=== PATIENT | female | born 1945 | race Caucasian/White ===

== ENCOUNTER 2016-11-20 23:33 | Inpatient (IN) | payer MEDICARE, OTHER ==
[~2016-11-20] VITALS: Ht 149.9 cm; Wt 45.5 kg
[2016-11-20 23:35] VITALS: BP 178/83; PULSE 74; RESP 16; TEMP 98.7; O2SAT 96
[2016-11-20] MEDS ORDERED: LISI-519 PO (23:56)
[2016-11-21] VITALS (13 sets, daily range): BP systolic 159–285; BP diastolic 68–152; PULSE 62–76; RESP 15–37; TEMP 96.4–99.2; O2SAT 94–100
[2016-11-21] MEDS ORDERED: NITROGLYCERIN 2% OINT 1 GM PACKET ONE (00:40)
[2016-11-21] MEDS ORDERED: IODIXANOL 320 MG/ML 50 ML VIAL (for RAD SPEC) I-ARTERIAL ONE (01:00)
--- NOTE | 2016-11-21 02:06 | PD.RAD ---
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 Moderate stenosis of right ICA origin Cerebral angio shows occlusion of M1 on right. Very difficult case due to unfavorable anatomy including very tortuous vessels and diffuse atherosclerosis. Thrombectomy performed utilizing Penumbra and Solitaire devices. Unsuccessful at removing thrombus. TICI score: 0 Jr. Berto,Antwon Alford MD Nov 21, 2016 02:06
[2016-11-21] MEDS ORDERED: LABETALOL HCL 100 MG/20 ML VIAL ONE (02:29)
[2016-11-21] MEDS ORDERED: VERAPAMIL HCL 5 MG/2 ML VIAL ONE (02:40)
[2016-11-21] MEDS ORDERED: ceFAZolin 2 GM PREMIX 50 ML ONE (02:41)
[2016-11-21] MEDS ORDERED: ONDANSETRON HCL 4 MG/2 ML VIAL ONE (03:01)
[2016-11-21] MEDS ORDERED: fentaNYL CITRATE 250 MCG/5 ML AMP ONE (04:17)
[2016-11-21] MEDS: SODIUM CHLOR 0.9% 1000 ML INJ 1,000 ML IV SCH (04:22)
[2016-11-21] MEDS ORDERED: ONDANSETRON HCL 4 MG/2 ML VIAL IV PRN (04:30)
[2016-11-21] MEDS ORDERED: BISACODYL 10 MG SUPP RECTAL PRN (04:30)
[2016-11-21] MEDS ORDERED: MISCELLANEOUS NURSING INFORMATION XX SCH (04:30)
[2016-11-21] MEDS ORDERED: CHLORHEXIDINE GLUCONATE 2 % 1 PACK (2 CLOTHS) TOP PRN (04:30)
[2016-11-21] MEDS ORDERED: LACTULOSE SYRUP 20 GM/30 ML CUP PO PRN (04:30)
[2016-11-21] MEDS ORDERED: METOCLOPRAMIDE HCL 10 MG/2 ML VIAL IV PRN (04:30)
[2016-11-21] MEDS ORDERED: SODIUM CHLORIDE 0.9% FLUSH 10 ML FLUSH PRN (04:30)
[2016-11-21] MEDS ORDERED: SENNOSIDES 8.6 MG TAB PO PRN (04:30)
[2016-11-21] MEDS ORDERED: MAGNESIUM HYDROXIDE SUSP 30 ML CUP PO PRN (04:30)
[2016-11-21] MEDS ORDERED: PROCHLORPERAZINE 25 MG SUPP RECTAL PRN (04:30)
[2016-11-21] MEDS ORDERED: RESP: ALBUTEROL 2.5 MG/IPRATROPIUM 0.5 MG NEB (PRN) INH (04:30)
[2016-11-21] MEDS ORDERED: ACETAMINOPHEN 325 MG TAB PO PRN (04:30)
--- NOTE | 2016-11-21 04:34 | PD.CONS ---
HPI Service Critical Care Medicine Consult Requested By Primary Care Physician Non-Staff History of Present Illness 71-year-old female with history of hypertension presented to [facility]'s today with a symptoms of acute stroke. She was treated with TPA and transferred here for high level of care. She underwent cerebral angiogram in the interventional radiology department with finding off moderate stenosis of right ICA origin and occlusion of M1 on right. Thrombectomy attempt was performed utilizing Penumbra and Solitaire devices. Unsuccessful at removing thrombus. Review of Systems ROS Unable to obtain patient is nonverbal Past Family Social History Allergies: Coded Allergies: No Known Allergies (Unverified , 11/20/16) Past Medical History Hypertension Past Surgical History Unable to obtain Reported Medications Reported Meds & Active Scripts Active Reported Lisinopril 5 Mg Tab 5 Mg PO DAILY Family History No contributory Social History Unable to obtain Physical Exam Vital Signs Vital Signs Date Time Temp Pulse Resp B/P Pulse Ox O2 Delivery O2 Flow Rate FiO2 11/20/16 23:35 98.7 74 16 178/83 96 Physical Exam GENERAL: Well-nourished, well-developed patient. SKIN: Warm and dry. HEAD: Normocephalic. EYES: No scleral icterus. No injection or drainage. NECK: Supple, trachea midline. No JVD or lymphadenopathy. CARDIOVASCULAR: Regular rate and rhythm without murmurs, gallops, or rubs. RESPIRATORY: Breath sounds equal bilaterally. No accessory muscle use. GASTROINTESTINAL: Abdomen soft, non-tender, nondistended. MUSCULOSKELETAL: No cyanosis, or edema. BACK: Nontender without obvious deformity. No CVA tenderness. EXTREMITIES: No clubbing cyanosis or edema Assessment and Plan Assessment and Plan Acute right MCA CVA - Status post TPA administration - Status post unsuccessful thrombectomy by IR - SBP goal 160 to 180 - PT and OT eval and treat - Speech pathology evaluation Attention - Hold home dose of lisinopril - Cardene drip to achieve goal of SBP less than 180 Dyslipidemia - Atorvastatin DVT GI prophylaxis - Subcutaneous heparin and start 24 hours after TPA - Pepcid Critical Care: The total critical care time was 35 minutes. Time to perform other separately billable procedures was not included in the critical care time. Gilberto Hooks MD Nov 21, 2016 04:34
[2016-11-21 05:07] LABS: BASOPHIL % 0.3 % (0.0-2.0); EOSINOPHIL # 0.1 TH/MM3 (0-0.4); EOSINOPHIL % 0.4 % (0.0-4.0); HEMATOCRIT 39.1 % (35.0-46.0); HEMO FLAGS DIFF FINAL; LYMPHOCYTE # 0.7 TH/MM3 (1.0-4.8); MEAN CELL VOLUME 92.8 FL (80.0-100.0); MEAN CORPUSCULAR HEMOGLOBIN 31.2 PG (27.0-34.0); MEAN CORPUSCULAR HGB CONC 33.6 % (32.0-36.0); MONO % 5.6 % (0.0-8.0); NEUT % 88.7 % (16.0-70.0); PLATELET COUNT 194 TH/MM3 (150-450); RED BLOOD COUNT 4.21 MIL/MM3 (4.00-5.30); RED CELL DISTRIBUTION WIDTH 13.5 % (11.6-17.2); WHITE BLOOD COUNT 14.7 TH/MM3 (4.0-11.0)
[2016-11-21] MEDS: CHLORHEXIDINE GLUCONATE 2 % 1 PACK (2 CLOTHS) TOP SCH (06:23)
[2016-11-21] MEDS: HEPARIN SODIUM - SQ 10,000 UNITS/ML VIAL SQ SCH ×3 (06:49→22:04)
[2016-11-21 07:09] LABS: ALT (GPT) 13 U/L (10-53); ANION GAP 10 MEQ/L (5-15); AST (GOT) 15 U/L (15-37); BICARBONATE 25.1 MEQ/L (21.0-32.0); BLOOD UREA NITROGEN 11 MG/DL (7-18); CALCIUM-PROTEIN CORRECTED 7.5 MG/DL (8.5-10.1); CHLORIDE 100 MEQ/L (98-107); GLOMERULAR FILTRATION RATE 56 ML/MIN (>89); MAGNESIUM 1.8 MG/DL (1.5-2.5); POTASSIUM 3.5 MEQ/L (3.5-5.1); SODIUM (NA) 135 MEQ/L (136-145); TOTAL BILIRUBIN ADULT 0.4 MG/DL (0.2-1.0)
[2016-11-21 07:10] LABS: ALKALINE PHOSPHATASE 49 U/L (45-117)
[2016-11-21] MEDS: DOCUSATE SODIUM 50 MG/SENNA 8.6 MG TAB PO SCH ×2 (09:00→21:00)
[2016-11-21] MEDS: SODIUM CHLORIDE 0.9% FLUSH 10 ML FLUSH SCH ×2 (09:00→22:02)
[2016-11-21] MEDS: FAMOTIDINE 20 MG/2 ML VIAL IV PUSH SCH ×2 (10:09→22:02)
--- NOTE | 2016-11-21 11:40 | RADRPT ---
EXAM DATE/TIME: 11/20/2016 00:42 [facility] COMPARISON: No previous studies available for comparison. INDICATIONS : Patient presents as emergent stroke in need of angiogram. Stroke score 17. Patient last seen normal a pproximately 6 hours ago. Patient left-sided hemiparetic. MEDICAL HISTORY : HTN SURGICAL HISTORY : Unknown ENCOUNTER: Initial ACUITY: 1 day PAIN SCORE: 0/10 FLUORO TIME: 32 minutes IMAGE SERIES: 18 ACCESS SITE: Bilateral Femoral artery CONTRAST: 120 cc Visipaque (iodixanol) DEVICE(S): 1.) Right middle cerebral artery LONNY 68 Kit Reperfusion catheter 2.) Right midddle cerebral artery Solitaire 6X30MM 3.) Left common femoral artery 8F Angio-Seal TIMELINE: Interventional team called: 1040 pm Interventional team arrived: 1110 pm Interventional team ready: 1140 pm Patient arrival: 1149 pm Groin puncture: 1221 am Recanalization: 0 Anesthesia and pain control was provided by the Anesthesia department. PROCEDURE : 1. Ultrasound-guided puncture of the access site(x2). 2. Angiography of the access site prior to closure device. 3. anesthesiology present for anesthesia. 4. Percutaneous closure of the access site. 5. Angiography of the right common carotid artery 6. Angiography of the right internal carotid artery 7. mechanical thrombectomy of the right M1 segment of the MCA A CD accompanied the patient but a chest x-ray was the only imaging study on this disc. I have no [facility] angiographic images. The risks, benefits and alternatives to the procedure were explained to the patient and verbal and co nsent was obtained. No family was available for consent. The right groin was prepped in sterile fashi on. Full sterile technique was used, including cap, mask, sterile gloves and gown and a large steril e sheet. Hand hygiene and 2% chlorhexidine and/or betadine/alcohol prep was utilized per protocol fo r cutaneous antisepsis. The skin and subcutaneous tissues were infiltrated with local anesthetic alejandra ution. With ultrasound and fluoroscopic guidance the right common femoral artery was punctured and a vascula r sheath was placed. I was unable to gain access to the aorta via this approach. 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 The micropuncture sheath was rem efrain and pressure held with hemostasis obtained. With ultrasound and fluoroscopic guidance the left c ommon femoral artery was punctured and a vascular sheath placed. Angiography of the common femoral ar vishnu was performed for evaluation prior to percutaneous closure device placement. This shows a 60% st enosis of the left common femoral artery. After placement of the left groin sheath the brachiocephalic artery was selected. The origin of the b rachiocephalic artery is fairly inferior within the ascending aorta generating a tight acute angle. T he right interim carotid artery was selected and angiography performed of the right ICA. This shows c omplete occlusion of the M1 segment. The A1 segment and anterior cerebral circulation are patent. The re is poor collateralization to the distal middle cerebral territory. A sheath was positioned in the common carotid artery. Angiography of the carotid bifurcation shows calcified plaque generating a 40- 50% stenosis. An 068 Penumbra and marksman catheter were passed through the sheath and utilized to ga in access to the intracranial ICA. The Penumbra catheter would not course through the intercavernous ICA due to calcified atherosclerotic disease. I was able to get the microcatheter through the thrombu s and a #6 solitary device deployed within the middle cerebral artery into the proximal M2 branch. Th is was left for 5 minutes. Attempts were then made to get the Penumbra catheter to the start of the t hrombus but once again the disease within the ICA prevented this. The tip of the catheter was able to reach the intercavernous ICA. Suction was applied and the solitary device retracted. Followup angiog maureen shows no change. The length of time it took to get the solitary device in place was extensive and therefore repeating this would be far outside the window. The procedure was terminated this point. Hemostasis was obtained with the prescribed medicated closure device. Conscious sedation was perform ed with the prescribed dosages and duration as above in the presence of an independent trained radiol ogy nurse to assist in the monitoring of the patient. EKG and oximetry remained stable throughout th e procedure. CONCLUSION: 1. Occluded right common femoral artery. 2. Significant stenosis involving the left common femoral artery. 3. 50-60% stenosis of the right ICA origin. 4. Complete occlusion of the M1 segment on the right with failed attempts at mechanical thrombectomy as detailed in the above discussion. Antwon Thomson Jr., MD on November 21, 2016 at 10:50 Board Certified Radiologist. This report was verified electronically.
--- NOTE | 2016-11-21 13:27 | MB ---
cc: IBRAHIMA CALDERON M.D. DATE OF CONSULTATION: 11/21/2016 HISTORY OF PRESENT ILLNESS She is a 71-year-old woman seen in neurological consultation. Last evening around 7-8 p.m. she was treated at [facility] for an acute stroke. She had left hemiparesis and some apparent gaze deviation to the right. She was felt to be a TPA candidate. She was given TPA and then a CT angio apparently showed some right medial cerebral artery stenosis/thrombosis. The patient was subsequently transferred to [facility]. An attempt to do thrombectomy was carried out, but not successful. The patient has been fairly stable overall. I spoke to the nursing staff. I also briefly spoke to Dr. Mondragon about this patient early today as Dr. Mondragon, my associate, was involved in the transfer of this patient to the hospital here for interventional radiology. I do not have much more history on her. NEUROLOGIC EXAM On exam she is frail but she is easily awakened, she has gaze preference to the right and she neglects the left side quite severely. She counts fingers on the right but not on the left. She moves the right-sided limbs well on commands with strong bakery products checker and she moves the right leg well on commands. The left-sided limbs have tone but she is neglecting and not really showing any spontaneous, voluntary motor function. There appeared with stimulation on the left side, she will withdraw fairly promptly and the left plantar response is extensor. She has reflexes bilaterally but diminished at the ankles. The pupils were about same size, reactive and I am unable to see the disks. LABORATORY DATA A CBC today shows a white count of 14.7, hemoglobin 13.1, platelets 194. Sodium 135. Glucose 137, calcium low at 7.2, BUN and creatinine normal. ASSESSMENT Status post acute right middle cerebral artery distribution event. TPA given and an attempt to do a thrombectomy was made but not successful. She is already scheduled for follow up CT brain later this evening. Her blood pressure has been in reasonable range. No atrial fibrillation documented. She has SCDs. We will request lipid profile, echocardiogram and depending upon results of CT scan, we will subsequently obtain MRI brain. She is n.p.o. at this point. I will continue the neurological care. Thank you for asking us to assist in her care. MD KIMBERLI Hdez/TLMary /1:04 PM /1:15 PM
[2016-11-21 13:49] LABS: HDL CHOLESTEROL 71.9 MG/DL (40.0-60.0)
[2016-11-21] MEDS ORDERED: TERBUTALINE INJ 1 MG/ML AMP SQ PRN (17:00)
[2016-11-21] MEDS ORDERED: ACETAMINOPHEN 1000 MG/100 ML VIAL IV PRN (17:00)
[2016-11-21] MEDS ORDERED: PHENYLEPHRINE INJ 40 MG in SODIUM CHLORID 0.9% 500 ML INJ 500 ML IV SCH (18:00)
--- NOTE | 2016-11-21 20:57 | RADRPT ---
EXAM DATE/TIME: 11/21/2016 20:42 [facility] COMPARISON: THROMBECTOMY, INTRACRANIAL, November 20, 2016, 0:42. INDICATIONS : Post TPA. RADIATION DOSE: 35.25 CTDIvol (mGy) MEDICAL HISTORY : Hypertension. SURGICAL HISTORY : Unspecified surgery. ENCOUNTER: Initial ACUITY: 1 day PAIN SCALE: 0/10 LOCATION: cranial TECHNIQUE: Multiple contiguous axial images were obtained of the head. Using automated exposure control and adj ustment of the mA and/or kV according to patient size, radiation dose was kept as low as reasonably a chievable to obtain optimal diagnostic quality images. FINDINGS: Faint low attenuation in a cytotoxic edema pattern seen in the right middle cerebral artery distribut ion. No significant mass effect/midline shift at this time. No hemorrhage or hematoma. No mass lesion . No evidence of an ischemic event on the left. Intact skull. CONCLUSION: Evidence of a subacute infarct of the right middle cerebral artery distribution. No bleed. No signifi cant mass effect at this time. Pj Maza MD on November 21, 2016 at 20:53 Board Certified Radiologist. This report was verified electronically.
[2016-11-22] VITALS (14 sets, daily range): BP systolic 159–202; BP diastolic 70–84; PULSE 54–80; RESP 20–39; TEMP 97.9–99.2; O2SAT 98–100
[2016-11-22 04:05] LABS: AUTOMATED NEUTROPHIL # 7.8 TH/MM3 (1.8-7.7); BASOPHIL % 0.3 % (0.0-2.0); EOSINOPHIL % 0.3 % (0.0-4.0); HEMATOCRIT 36.2 % (35.0-46.0); HEMO FLAGS DIFF FINAL; LYMPH % 12.3 % (9.0-44.0); LYMPHOCYTE # 1.2 TH/MM3 (1.0-4.8); MEAN CELL VOLUME 93.6 FL (80.0-100.0); MEAN CORPUSCULAR HEMOGLOBIN 31.2 PG (27.0-34.0); MEAN CORPUSCULAR HGB CONC 33.4 % (32.0-36.0); MONO % 8.8 % (0.0-8.0); NEUT % 78.3 % (16.0-70.0); PLATELET COUNT 156 TH/MM3 (150-450); RED BLOOD COUNT 3.87 MIL/MM3 (4.00-5.30); RED CELL DISTRIBUTION WIDTH 13.5 % (11.6-17.2); WHITE BLOOD COUNT 9.9 TH/MM3 (4.0-11.0)
[2016-11-22 04:16] LABS: APTT (PATIENT) 30.6 SEC (24.3-30.1); INTERNATIONAL NORMALIZED RATIO 0.9 RATIO; PROTHROMBIN TIME - PATIENT 10.3 SEC (9.8-11.6)
[2016-11-22 04:37] LABS: BICARBONATE 25.6 MEQ/L (21.0-32.0); MAGNESIUM 1.9 MG/DL (1.5-2.5); POTASSIUM 3.4 MEQ/L (3.5-5.1); TOTAL BILIRUBIN ADULT 0.5 MG/DL (0.2-1.0)
[2016-11-22 05:19] LABS: CALCIUM-PROTEIN CORRECTED 7.4 MG/DL (8.5-10.1)
[2016-11-22] MEDS: HEPARIN SODIUM - SQ 10,000 UNITS/ML VIAL SQ SCH ×3 (05:41→21:18)
[2016-11-22] MEDS: MORPHINE SULFATE 4 MG/ML INJ IV PRN ×2 (05:42)
[2016-11-22] MEDS ORDERED: CALCIUM GLUCONATE INJ 2 GM in SODIUM CHLORIDE 0.9% INJ 100 ML IV ONE (06:15)
[2016-11-22] MEDS: SODIUM CHLOR 0.9% 1000 ML INJ 1,000 ML IV SCH ×3 (06:52→21:17)
--- NOTE | 2016-11-22 08:45 | HHI.PR ---
Review/Management Daily Summary 11/22 less restless this am on my exam no headache left hemiparesis severe and unchanged start asa suppository echo pending nutrition via ng tube? PT for stroke rehab Subjective Subjective Comments No new neuro events reported No headache Active Medications Current Medications Medications (Trade) Dose Ordered Sig/Chana Route Start Time Stop Time Status Last Admin (NS 1000 ml Inj) 1,000 ml @ 84 mls/hr [id number] IV 11/21/16 04:22 11/22/16 07:05 (NS Flush) 2 ml UNSCH PRN .XX 11/21/16 04:30 (NS Flush) 2 ml BID .XX 11/21/16 09:00 11/21/16 22:02 (Tylenol) 650 mg Q6H PRN PO 11/21/16 04:30 (Morphine Inj) 2 mg Q2H PRN IV 11/21/16 04:30 11/22/16 05:42 (Pepcid Inj) 20 mg Q12HR IV PUSH 11/21/16 09:00 11/21/16 22:02 (Zofran Inj) 4 mg Q6H PRN IV 11/21/16 04:30 (Reglan Inj) 10 mg Q6H PRN IV 11/21/16 04:30 (Compazine Supp) 25 mg Q12H PRN RECTAL 11/21/16 04:30 (Heparin Inj) 5,000 units Q8H SQ 11/21/16 06:00 11/22/16 05:41 Miscellaneous Information 1 Q361D XX 11/21/16 04:30 11/21/16 04:30 (Chlorhexidine 2% Cloth) 3 pack Taper DAILY@04 TOP 11/22/16 04:00 11/18/17 03:59 11/21/16 06:23 (Chlorhexidine 2% Cloth) 3 pack UNSCH PRN TOP 11/21/16 04:30 (Venita-Colace) 1 tab BID PO 11/21/16 09:00 (Milk Of Magnesia Liq) 30 ml Q12H PRN PO 11/21/16 04:30 (Senokot) 17.2 mg Q12H PRN PO 11/21/16 04:30 (Dulcolax Supp) 10 mg DAILY PRN RECTAL 11/21/16 04:30 (Lactulose Liq) 30 ml DAILY PRN PO 11/21/16 04:30 Acetaminophen 1000 mg 1,000 mg Q6H PRN IV 11/21/16 17:00 (Neosynephrine Inj/NS 500 ml Inj) 504 ml @ 0 mls/hr TITRATE IV 11/21/16 18:00 (Brethine Inj) 1 mg UNSCH PRN SQ 11/21/16 17:00 Allergies Allergies Coded Allergies No Known Allergies (Unverified11/20/16) Exam I&O / VS 11/21/16 11/21/16 11/22/16 15:00 23:00 07:00 Intake Total 702 ml 329 ml 556 ml Output Total 375 ml Balance 702 ml 329 ml 181 ml Intake IV Total 702 ml 329 ml 556 ml Output Urine Total 375 ml # Voids 1 2 # Bowel Movements 0 Vital Signs Date Time Temp Pulse Resp B/P Pulse Ox O2 Delivery O2 Flow Rate FiO2 11/22/16 08:01 98 Nasal Cannula 2.00 11/22/16 06:00 56 11/22/16 04:00 64 11/22/16 04:00 98.6 64 26 202/80 99 11/22/16 02:00 54 11/22/16 00:00 99.2 69 24 179/70 98 11/22/16 00:00 66 11/21/16 22:00 62 11/21/16 20:00 66 11/21/16 20:00 99.2 70 15 171/74 99 11/21/16 19:27 99 Nasal Cannula 3.00 11/21/16 19:00 99 Nasal Cannula 3.00 11/21/16 18:00 66 11/21/16 16:00 66 11/21/16 16:00 98.7 66 32 163/70 100 11/21/16 14:00 66 11/21/16 12:00 99.1 68 26 179/73 97 11/21/16 12:00 64 11/21/16 10:00 66 Objective Radiology Results Last [address] 11/21/161999 Signed Impressions: Service Date/Time: Monday, November 21, 2016 20:42 - CONCLUSION: Evidence of a subacute infarct of the right middle cerebral artery distribution. No bleed. No significant mass effect at this time. Pj Maza MD Vital Signs Date Time Temp Pulse Resp B/P Pulse Ox O2 Delivery O2 Flow Rate FiO2 11/22/16 08:01 98 Nasal Cannula 2.00 11/22/16 06:00 56 11/22/16 04:00 64 11/22/16 04:00 98.6 64 26 202/80 99 11/22/16 02:00 54 11/22/16 00:00 99.2 69 24 179/70 98 11/22/16 00:00 66 11/21/16 22:00 62 11/21/16 20:00 66 11/21/16 20:00 99.2 70 15 171/74 99 11/21/16 19:27 99 Nasal Cannula 3.00 11/21/16 19:00 99 Nasal Cannula 3.00 11/21/16 18:00 66 11/21/16 16:00 66 11/21/16 16:00 98.7 66 32 163/70 100 11/21/16 14:00 66 11/21/16 12:00 99.1 68 26 179/73 97 11/21/16 12:00 64 11/21/16 10:00 66 Micro and Labs Laboratory Tests Test 11/21/16 11/22/16 11:13 03:30 Troponin I LESS THAN 0.02 Triglycerides Level 98 Cholesterol Level 146 LDL Cholesterol 55 HDL Cholesterol 71.9 Cholesterol/HDL Ratio 2.03 White Blood Count 9.9 Red Blood Count 3.87 Hemoglobin 12.1 Hematocrit 36.2 Mean Corpuscular Volume 93.6 Mean Corpuscular Hemoglobin 31.2 Mean Corpuscular Hemoglobin 33.4 Concent Red Cell Distribution Width 13.5 Platelet Count 156 Mean Platelet Volume 8.3 Neutrophils (%) (Auto) 78.3 Lymphocytes (%) (Auto) 12.3 Monocytes (%) (Auto) 8.8 Eosinophils (%) (Auto) 0.3 Basophils (%) (Auto) 0.3 Neutrophils # (Auto) 7.8 Lymphocytes # (Auto) 1.2 Monocytes # (Auto) 0.9 Eosinophils # (Auto) 0.0 Basophils # (Auto) 0.0 CBC Comment DIFF FINAL Differential Comment Prothrombin Time 10.3 Prothromb Time International 0.9 Ratio Activated Partial 30.6 Thromboplast Time Sodium Level 137 Potassium Level 3.4 Chloride Level 106 Carbon Dioxide Level 25.6 Anion Gap 5 Blood Urea Nitrogen 10 Creatinine 0.90 Estimat Glomerular Filtration 61 Rate Random Glucose 83 Calcium Level 6.8 Protein Corrected Calcium 7.4 Phosphorus Level 2.6 Magnesium Level 1.9 Total Bilirubin 0.5 Aspartate Amino Transf 15 (AST/SGOT) Alanine Aminotransferase 13 (ALT/SGPT) Alkaline Phosphatase 46 Total Protein 6.0 Albumin 2.9 Cesar Oviedo MD Nov 22, 2016 08:45
[2016-11-22] MEDS: DOCUSATE SODIUM 50 MG/SENNA 8.6 MG TAB PO SCH ×2 (09:00→20:57)
[2016-11-22] MEDS: SODIUM CHLORIDE 0.9% FLUSH 10 ML FLUSH SCH ×2 (09:00→20:56)
[2016-11-22] MEDS: FAMOTIDINE 20 MG/2 ML VIAL IV PUSH SCH ×2 (09:50→20:57)
--- NOTE | 2016-11-22 12:54 | HHI.CCPN ---
Subjective Remarks/Hospital Course Hospital Course: 71-year-old female with history of hypertension presented to [facility]'s today with a symptoms of acute stroke. She was treated with TPA and transferred here for high level of care. She underwent cerebral angiogram in the interventional radiology department with finding off moderate stenosis of right ICA origin and occlusion of M1 on right. Thrombectomy attempt was performed utilizing Penumbra and Solitaire devices. Unsuccessful at removing thrombus. Subjective: 11/22: neuro exam slightly improved. more awake. passed swallow study. still on small amount of nicardipine. Objective Vital Signs Date Time Temp Pulse Resp B/P Pulse Ox O2 Delivery O2 Flow Rate FiO2 11/22/16 08:01 98 Nasal Cannula 2.00 11/22/16 06:00 56 11/22/16 04:00 98.6 26 202/80 Intake and Output 11/21/16 11/21/16 11/22/16 08:00 16:00 00:00 Intake Total 176 ml 702 ml 329 ml Output Total 100 ml Balance 76 ml 702 ml 329 ml Result Diagram: 11/22/16 0330 11/22/16 0330 Objective Remarks GENERAL: Well-nourished, well-developed patient. SKIN: Warm and dry. HEAD: Normocephalic. EYES: No scleral icterus. No injection or drainage. NECK: trachea midline. No JVD CARDIOVASCULAR: normal rate, regular rhythm. sinus by tele. RESPIRATORY: Unlabored. equal chest rise. No accessory muscle use. GASTROINTESTINAL: Abdomen soft, non-tender, nondistended. MUSCULOSKELETAL: No cyanosis, or edema. EXTREMITIES: No clubbing cyanosis or edema Neuro: awake, follows commands on right. cyrus 0/5 on left. A/P Assessment and Plan Assessment: 71yF s/p right MCA CVA. clinically improving. weaning off Cardene. goal SBP < 180. will gently restart home antihypertensives. likely stable for transfer to floor late today. Acute right MCA CVA - Status post TPA administration - Status post unsuccessful thrombectomy by IR - SBP goal < 180 - PT and OT eval and treat - Speech pathology evaluation: cleared for mechanical soft. - ASA Hypertensive Urgency - restart home lisinopril 5mg po daily - Cardene drip to achieve goal of SBP less than 180, wean off using prn labetalol, hydralazine. Dyslipidemia - Atorvastatin DVT GI prophylaxis - Subcutaneous heparin - Pepcid Dispo: likely stable for transfer to floor with hospitalist service following. Musa Mahan MD Nov 22, 2016 12:54
[2016-11-22] MEDS: LISINOPRIL 5 MG TAB PO SCH (13:45)
--- NOTE | 2016-11-22 17:57 | ECHRPT ---
Indication: STROKE CONCLUSIONS The transthoracic study is normal by two-dimensional, color flow imaging and Doppler interrogation. BP: 202 / 80 HR: 64 Rhythm: Sinus MEASUREMENTS (Male / Female) Normal Values Technical Quality:Fair 2D ECHO LV Diastolic Diameter PLAX 4.4 cm 4.2 - 5.9 / 3.9 - 5.3 cm LV Systolic Diameter PLAX 3.0 cm IVS Diastolic Thickness 0.8 cm 0.6 - 1.0 / 0.6 - 0.9 cm LVPW Diastolic Thickness 0.8 cm 0.6 - 1.0 / 0.6 - 0.9 cm LV Relative Wall Thickness 0.4 RV Internal Dim ED PLAX 1.9 cm LVOT Diameter 2.0 cm LA Systolic Diameter LX 3.2 cm 3.0 - 4.0 / 2.7 - 3.8 cm LV Ejection Fraction MOD 4C 61.7 % LV Cardiac Index MOD 4C 1800.9 cm/minm LV Ejection Fraction 4C AL 64.7 % LV Cardiac Index 4C AL 1966.8 cm/minm M-MODE Aortic Root Diameter MM 2.9 cm AV Cusp Separation MM 1.7 cm DOPPLER AV Peak Velocity 156.0 cm/s AV Peak Gradient 9.7 mmHg LVOT Peak Velocity 97.2 cm/s LVOT Peak Gradient 3.8 mmHg AV Area Cont Eq pk 2.0 cm MV Area PHT 3.9 cm Mitral E Point Velocity 78.5 cm/s Mitral A Point Velocity 73.1 cm/s Mitral E to A Ratio 1.1 LV E' Lateral Velocity 6.3 cm/s Mitral E to LV E' Lateral Ratio 12.4 LV E' Septal Velocity 5.5 cm/s Mitral E to LV E' Septal Ratio 14.4 TV Peak Velocity 213.0 cm/s PV Peak Velocity 83.6 cm/s PV Peak Gradient 2.8 mmHg FINDINGS Left Ventricle No regional wall motion abnormalities are present. Normal left ventricular size and wall thickness. The left ventricular systolic function is normal with an estimated ejection fraction in the range of 60-65%. Left ventricular diastolic function parameters are normal. Right Ventricle Normal right ventricular size and systolic function. Left Atrium The left atrial size is normal. Right Atrium The right atrial size is normal. Atrial Septum Normal atrial septal thickness without atrial level shunting by limited color doppler interrogation. Aorta The aortic root and proximal ascending aorta are normal in size on limited imaging. Mitral Valve Structurally normal mitral valve. No mitral valve stenosis or regurgitation. Aortic Valve Trileaflet aortic valve. No aortic valve stenosis or regurgitation. Aortic valve sclerosis is prese nt. Tricuspid Valve Structurally normal tricuspid valve. There is trace tricuspid valve regurgitation. Pulmonary Valve The pulmonary valve is not well visualized. Vessels The inferior vena cava is normal in size. Pericardium No pericardial effusion. Joo Schmitz MD, FACC, FSCAI Edited by: [employer]ist[employer] (Electronically Signed) Final Date:22 November 2016 15:14 Amended: 22 November 2016 17:48
[2016-11-22] MEDS: NICOTINE 21 MG/24 HR PATCH T-DERMAL SCH (20:56)
[2016-11-22] MEDS: REMOVE OLD PATCH T-DERMAL SCH (21:00)
[2016-11-22] MEDS: LABETALOL HCL 100 MG/20 ML VIAL IV PUSH PRN (23:38)
[2016-11-23] VITALS (14 sets, daily range): BP systolic 134–187; BP diastolic 71–90; PULSE 61–93; RESP 18–26; TEMP 96.8–99; O2SAT 94–100
[2016-11-23] MEDS: LABETALOL HCL 100 MG/20 ML VIAL IV PUSH PRN (01:14)
[2016-11-23] MEDS: CHLORHEXIDINE GLUCONATE 2 % 1 PACK (2 CLOTHS) TOP SCH (02:53)
[2016-11-23] MEDS: hydrALAZINE HCL 20 MG/ML VIAL IV PUSH PRN ×2 (02:54→13:41)
[2016-11-23] MEDS: SODIUM CHLOR 0.9% 1000 ML INJ 1,000 ML IV SCH ×3 (04:02→21:19)
[2016-11-23] MEDS: HEPARIN SODIUM - SQ 10,000 UNITS/ML VIAL SQ SCH ×3 (06:19→21:15)
[2016-11-23] MEDS: SODIUM CHLORIDE 0.9% FLUSH 10 ML FLUSH SCH ×2 (09:00→21:17)
[2016-11-23] MEDS ORDERED: REMOVE OLD PATCH T-DERMAL SCH (09:00)
[2016-11-23] MEDS: FAMOTIDINE 20 MG/2 ML VIAL IV PUSH SCH ×2 (09:12→21:14)
[2016-11-23] MEDS: DOCUSATE SODIUM 50 MG/SENNA 8.6 MG TAB PO SCH ×2 (09:12→21:14)
[2016-11-23] MEDS: LISINOPRIL 5 MG TAB PO SCH (09:12)
[2016-11-23] MEDS: NICOTINE 21 MG/24 HR PATCH T-DERMAL SCH (09:13)
[2016-11-23] MEDS ORDERED: CALCIUM GLUCONATE INJ 1 GM in SODIUM CHLORIDE 0.9% INJ 100 ML IV ONE (12:45)
--- NOTE | 2016-11-23 13:38 | HHI.PR ---
Subjective Remarks Follow-up for CVA Patient is able to follow commands but there is difficulty understanding patient because she wears dentures. Patient stated that she wanted to go home to see her daughter. Patient has if I speak to her daughter Kristen. Patient sisters at the bedside. Patient has no other complaints. She continues to have right-sided weakness. Denies any headache, visual changes, nausea or emesis. Objective Vitals Vital Signs Date Time Temp Pulse Resp B/P Pulse Ox O2 Delivery O2 Flow Rate FiO2 11/23/16 12:00 99.0 75 23 175/82 96 11/23/16 10:00 62 11/23/16 09:27 97 Nasal Cannula 2.00 11/23/16 08:00 72 11/23/16 08:00 98.6 76 20 167/81 96 Arterial Line 11/23/16 07:00 95 Nasal Cannula 3.00 11/23/16 06:00 76 11/23/16 04:00 74 11/23/16 04:00 98.4 74 26 134/71 97 11/23/16 02:00 66 11/23/16 00:00 99.0 61 26 160/71 97 11/23/16 00:00 61 11/22/16 22:00 72 11/22/16 20:44 100 Nasal Cannula 2.00 11/22/16 20:00 99.1 80 20 198/74 100 11/22/16 20:00 80 11/22/16 19:00 98 Nasal Cannula 3.00 11/22/16 18:00 60 11/22/16 16:00 68 11/22/16 16:00 99.1 68 39 173/79 11/22/16 14:00 62 I/O 11/22/16 11/22/16 11/22/16 11/23/16 11/23/16 11/23/16 07:00 15:00 23:00 07:00 15:00 23:00 Intake Total 556 ml 982 ml 547 ml 604 ml Output Total 375 ml 1550 ml 700 ml 325 ml Balance 181 ml -568 ml -153 ml 279 ml Intake IV Total 556 ml 982 ml 547 ml 604 ml Output Urine Total 375 ml 1550 ml 700 ml 325 ml # Bowel Movements 0 0 0 0 Result Diagram: 11/22/16 03311/22/16 0330 Objective Remarks GENERAL: in NAD CARDIOVASCULAR: Regular rate and rhythm without gallops or rubs. 2 out of 6 soft flow murmur in the pulmonic area. RESPIRATORY: Breath sounds equal bilaterally. No accessory muscle use. GASTROINTESTINAL: Abdomen soft, non-tender, nondistended. NEURO: Patient does follow commands but is difficult to understand patient due to not having her dentures. Patient did ask to go home and stated that she does not need to go to rehabilitation center that she has her cane and she is more the capable of taking care of herself at home. Right-sided strength 5 out of 5. She has no strength on the right side but when I asked her to lift her right leg I do see a little flexion of the hip. Medications and IVs Current Medications Nitroglycerin (Nitroglycerin 2% Oint) 1 inch STK-MED ONCE .ROUTE ; Start at 00:40; Stop 11/21/16 at 00:41; Status DC Labetalol HCl (Trandate Inj) 100 mg STK-MED ONCE .ROUTE Last administered on 02:30; Start 11/21/16 at 02:29; Stop 11/21/16 at 02:30; Status DC Verapamil HCl 5 mg 5 mg STK-MED ONCE .ROUTE ; Start 11/21/16 at 02:40; Stop at 02:41; Status DC Cefazolin Sodium/ Dextrose (Ancef 2 Gm Premix) 50 ml @ As Directed STK-MED ONCE .ROUTE Last administered on 11/21/16 02:10; Start 11/21/16 at 02:41; Stop at 02:42; Status DC Nicardipine HCl (Cardene Inj) 25 mg STK-MED ONCE .ROUTE Last administered on 02:47; Start 11/21/16 at 02:47; Stop 11/21/16 at 02:48; Status DC Ondansetron HCl (Zofran Inj) 4 mg STK-MED ONCE .ROUTE Last administered on 03:01; Start 11/21/16 at 03:01; Stop 11/21/16 at 03:02; Status DC Fentanyl Citrate 250 mcg 250 mcg STK-MED ONCE .ROUTE ; Start 11/21/16 at 04:17; Stop 11/21/16 at 04:18; Status DC Sodium Chloride (NS 1000 ml Inj) 1,000 ml @ 84 mls/hr [id number] IV Last administered on 11/22/16 21:17; Start 11/21/16 at 04:22 Sodium Chloride (NS Flush) 2 ml UNSCH PRN .XX FLUSH AFTER USING IV ACCESS; Start 11/21/16 at 04:30 Sodium Chloride (NS Flush) 2 ml BID .XX Last administered on 11/23/16 09:00; Start 11/21/16 at 09:00 Acetaminophen (Tylenol) 650 mg Q6H PRN PO PAIN 1-5 AND/OR FEVER >101F; Start at 04:30 Morphine Sulfate (Morphine Inj) 2 mg Q2H PRN IV PAIN SCALE 6 TO 10 Last administered on 11/22/16 05:42; Start 11/21/16 at 04:30 Famotidine (Pepcid Inj) 20 mg Q12HR IV PUSH Last administered on 11/23/16 09:12 ; Start 11/21/16 at 09:00 Ondansetron HCl (Zofran Inj) 4 mg Q6H PRN IV NAUSEA OR VOMITING; Start 11/21/16 at 04:30 Metoclopramide HCl (Reglan Inj) 10 mg Q6H PRN IV NAUSEA OR VOMITING; Start 11/21 at 04:30 Prochlorperazine (Compazine Supp) 25 mg Q12H PRN RECTAL NAUSEA OR VOMITING; Start 11/21/16 at 04:30 Albuterol/ Ipratropium (Duoneb Neb) 1 ampule Q2HR NEB PRN INH WHEEZING; Start 11/21/16 at 04:30 Heparin Sodium (Porcine) (Heparin Inj) 5,000 units Q8H SQ Last administered on 11/23/16 06:19; Start 11/21/16 at 06:00 Miscellaneous Information 1 Q361D XX Last administered on 11/21/16 04:30; Start 11/21/16 at 04:30 Chlorhexidine Gluconate (Chlorhexidine 2% Cloth) 3 pack Taper DAILY@04 TOP Last administered on 11/23/16 02:53; Start 11/22/16 at 04:00; Stop 11/18/17 at 03: 59 Chlorhexidine Gluconate (Chlorhexidine 2% Cloth) 3 pack UNSCH PRN TOP HYGIENIC CARE; Start 11/21/16 at 04:30 Senna/Docusate Sodium (Venita-Colace) 1 tab BID PO Last administered on 11/23/16 09:12; Start 11/21/16 at 09:00 Magnesium Hydroxide (Milk Of Magnesia Liq) 30 ml Q12H PRN PO MILD - MODERATE CONSTIPATION; Start 11/21/16 at 04:30 Sennosides (Senokot) 17.2 mg Q12H PRN PO MODERATE - SEVERE CONSTIPATION; Start 11/21/16 at 04:30 Bisacodyl (Dulcolax Supp) 10 mg DAILY PRN RECTAL SEVERE CONSITIPATION; Start at 04:30 Lactulose (Lactulose Liq) 30 ml DAILY PRN PO SEVERE CONSITIPATION; Start at 04:30 Iodixanol (VISIPAQUE 320 INJ (Rad Spec)) 120 ml STK-MED ONCE I-ARTERIAL Last administered on 11/21/16 01:00; Start 11/21/16 at 01:00; Stop 11/21/16 at 10:04; Status DC Acetaminophen 1000 mg 1,000 mg Q6H PRN IV pain 1-10 or fever > 100.4.; Start at 17:00 Phenylephrine HCl/ Sodium Chloride (Neosynephrine Inj/NS 500 ml Inj) 504 ml @ 0 mls/hr TITRATE IV ; Start 11/21/16 at 18:00; Stop 11/22/16 at 12:54; Status DC Terbutaline Sulfate 1 mg 1 mg UNSCH PRN SQ For Extravasation; Start 11/21/16 at 17:00 Calcium Gluconate/ Sodium Chloride (Calcium Gluconate Inj/NS Inj) 120 ml @ 120 mls/hr ONCE ONCE IV Last administered on 11/22/16 06:52; Start 11/22/16 at 06: 15; Stop 11/22/16 at 07:14; Status DC Lisinopril (Prinivil) 5 mg DAILY PO Last administered on 11/23/16 09:12; Start 11/22/16 at 12:41; Stop 11/23/16 at 12:36; Status DC Labetalol HCl (Trandate Inj) 20 mg Q15M PRN IV PUSH sbp > 180 Last administered on 11/23/16 01:14; Start 11/22/16 at 12:45 Hydralazine HCl (Apresoline Inj) 10 mg Q30M PRN IV PUSH sbp > 180 Last administered on 11/23/16 02:54; Start 11/22/16 at 12:45 Nicotine (Habitrol 21 Mg Patch.24 Hr) 1 patch DAILY T-DERMAL Last administered on 11/23/16 09:13; Start 11/22/16 at 20:15 Miscellaneous Information 1 DAILY T-DERMAL ; Start 11/23/16 at 09:00; Status UNV Miscellaneous Information 1 HS T-DERMAL ; Start 11/22/16 at 21:00 Lisinopril (Prinivil) 10 mg DAILY PO ; Start 11/24/16 at 09:00 Hydrochlorothiazide 25 mg 25 mg DAILY PO ; Start 11/23/16 at 12:45 Calcium Gluconate/ Sodium Chloride (Calcium Gluconate Inj/NS Inj) 110 ml @ 110 mls/hr ONCE ONCE IV ; Start 11/23/16 at 12:45; Stop 11/23/16 at 13:44 A/P Assessment and Plan 71yF s/p right MCA CVA. Acute right MCA CVA - Status post TPA administration - Status post unsuccessful thrombectomy by IR - SBP goal < 180 - PT and OT eval and treat - Speech pathology evaluation: cleared for mechanical soft. - ASA. LDL is 55. Continue to monitor on telemetry. Hypertensive Urgency - Increase lisinopril to 10 mg by mouth daily. Add Hydrocort Dyazide. Dyslipidemia - Atorvastatin DVT GI prophylaxis - Subcutaneous heparin - Pepcid Discharge Planning Once patient is medically stable she will need to be discharged to rehabilitation facility. There is no number for Kristen, patient's daughter, in the chart. I spoke with patient's sister who stated that her daughter, Walt has her number. I called see him but she did not pear picker the phone. Will try calling Walt again in order to reach Kristen since patient wants me to speak to her daughter. Per patient's nurse they have been communicating with Kristen but her numbers is not in the chart. Jaci Palmer MD Nov 23, 2016 13:38
[2016-11-23] MEDS: HYDROCHLOROTHIAZIDE 25 MG TAB PO SCH (15:35)
[2016-11-23] MEDS: REMOVE OLD PATCH T-DERMAL SCH (21:00)
[2016-11-23] MEDS: MORPHINE SULFATE 4 MG/ML INJ IV PRN (23:38)
[2016-11-24] MEDS: CHLORHEXIDINE GLUCONATE 2 % 1 PACK (2 CLOTHS) TOP SCH (04:00)
[2016-11-24 04:04] VITALS: BP 176/86; PULSE 63; RESP 18; TEMP 96.7; O2SAT 97
[2016-11-24] MEDS: HEPARIN SODIUM - SQ 10,000 UNITS/ML VIAL SQ SCH ×3 (06:25→22:04)
[2016-11-24 08:17] VITALS: BP 146/97; PULSE 58; RESP 20; TEMP 96; O2SAT 99
[2016-11-24] MEDS ORDERED: LISINOPRIL 10 MG TAB PO SCH (09:00)
[2016-11-24] MEDS: NICOTINE 21 MG/24 HR PATCH T-DERMAL SCH (09:38)
[2016-11-24] MEDS: HYDROCHLOROTHIAZIDE 25 MG TAB PO SCH (09:39)
[2016-11-24] MEDS: FAMOTIDINE 20 MG/2 ML VIAL IV PUSH SCH ×2 (09:41→22:04)
[2016-11-24] MEDS: SODIUM CHLORIDE 0.9% FLUSH 10 ML FLUSH SCH ×2 (09:45→22:03)
[2016-11-24] MEDS: DOCUSATE SODIUM 50 MG/SENNA 8.6 MG TAB PO SCH ×2 (09:50→22:04)
--- NOTE | 2016-11-24 11:24 | HHI.PR ---
Subjective Remarks Follow-up for CVA Patient is more alert today. She continues to have left-sided weakness. Patient stated that her lower back hurts and that the heating pad from yesterday work. Otherwise she has no other complaints. Patient's daughter Kristen and her are at the bedside. Most of the questions answer were in terms of her diagnosis and prognosis. Objective Vitals Vital Signs Date Time Temp Pulse Resp B/P Pulse Ox O2 Delivery O2 Flow Rate FiO2 11/24/16 08:17 96.0 58 20 146/97 99 11/24/16 04:04 96.7 63 18 176/86 97 11/23/16 23:59 97.3 73 18 166/79 94 11/23/16 20:40 97.6 93 18 175/85 98 11/23/16 20:00 98 Nasal Cannula 3.00 11/23/16 20:00 98 Nasal Cannula 3.00 11/23/16 16:36 96.8 85 20 173/90 100 11/23/16 14:29 179/79 11/23/16 12:00 99.0 75 23 175/82 96 I/O 11/23/16 11/23/16 11/23/16 11/24/16 11/24/16 11/24/16 07:00 15:00 23:00 07:00 15:00 23:00 Intake Total 604 ml 655 ml 810 ml Output Total 325 ml 550 ml 300 ml Balance 279 ml 655 ml -550 ml 510 ml Intake Oral 60 ml IV Total 604 ml 655 ml 750 ml Output Urine Total 325 ml 550 ml 300 ml # Bowel Movements 0 0 0 Result Diagram: 11/22/16 0330 11/22/16 0330 Objective Remarks GENERAL: in NAD CARDIOVASCULAR: Regular rate and rhythm without gallops or rubs. 2 out of 6 soft flow murmur in the pulmonic area. RESPIRATORY: Breath sounds equal bilaterally. No accessory muscle use. GASTROINTESTINAL: Abdomen soft, non-tender, nondistended. NEURO: AAo X 3 but is difficult to understand patient due to not having her dentures. 5 out of 5 right-sided strength. 0 out of 5 left-sided strength. Sensation grossly intact bilaterally. Medications and IVs Current Medications Nitroglycerin (Nitroglycerin 2% Oint) 1 inch Expect LabsK-MED ONCE .ROUTE ; Start at 00:40; Stop 11/21/16 at 00:41; Status DC Labetalol HCl (Trandate Inj) 100 mg STK-MED ONCE .ROUTE Last administered on 02:30; Start 11/21/16 at 02:29; Stop 11/21/16 at 02:30; Status DC Verapamil HCl 5 mg 5 mg STK-MED ONCE .ROUTE ; Start 11/21/16 at 02:40; Stop at 02:41; Status DC Cefazolin Sodium/ Dextrose (Ancef 2 Gm Premix) 50 ml @ As Directed STK-MED ONCE .ROUTE Last administered on 11/21/16 02:10; Start 11/21/16 at 02:41; Stop at 02:42; Status DC Nicardipine HCl (Cardene Inj) 25 mg STK-MED ONCE .ROUTE Last administered on 02:47; Start 11/21/16 at 02:47; Stop 11/21/16 at 02:48; Status DC Ondansetron HCl (Zofran Inj) 4 mg STK-MED ONCE .ROUTE Last administered on 03:01; Start 11/21/16 at 03:01; Stop 11/21/16 at 03:02; Status DC Fentanyl Citrate 250 mcg 250 mcg STK-MED ONCE .ROUTE ; Start 11/21/16 at 04:17; Stop 11/21/16 at 04:18; Status DC Sodium Chloride (NS 1000 ml Inj) 1,000 ml @ 84 mls/hr [id number] IV Last administered on 11/23/16 21:19; Start 11/21/16 at 04:22 Sodium Chloride (NS Flush) 2 ml UNSCH PRN .XX FLUSH AFTER USING IV ACCESS; Start 11/21/16 at 04:30 Sodium Chloride (NS Flush) 2 ml BID .XX Last administered on 11/24/16 09:45; Start 11/21/16 at 09:00 Acetaminophen (Tylenol) 650 mg Q6H PRN PO PAIN 1-5 AND/OR FEVER >101F; Start at 04:30 Morphine Sulfate (Morphine Inj) 2 mg Q2H PRN IV PAIN SCALE 6 TO 10 Last administered on 11/23/16 23:38; Start 11/21/16 at 04:30 Famotidine (Pepcid Inj) 20 mg Q12HR IV PUSH Last administered on 11/24/16 09:41 ; Start 11/21/16 at 09:00 Ondansetron HCl (Zofran Inj) 4 mg Q6H PRN IV NAUSEA OR VOMITING; Start 11/21/16 at 04:30 Metoclopramide HCl (Reglan Inj) 10 mg Q6H PRN IV NAUSEA OR VOMITING; Start 11/21 at 04:30 Prochlorperazine (Compazine Supp) 25 mg Q12H PRN RECTAL NAUSEA OR VOMITING; Start 11/21/16 at 04:30 Albuterol/ Ipratropium (Duoneb Neb) 1 ampule Q2HR NEB PRN INH WHEEZING; Start 11/21/16 at 04:30 Heparin Sodium (Porcine) (Heparin Inj) 5,000 units Q8H SQ Last administered on 11/24/16 06:25; Start 11/21/16 at 06:00 Miscellaneous Information 1 Q361D XX Last administered on 11/21/16 04:30; Start 11/21/16 at 04:30 Chlorhexidine Gluconate (Chlorhexidine 2% Cloth) 3 pack Taper DAILY@04 TOP Last administered on 11/23/16 02:53; Start 11/22/16 at 04:00; Stop 11/18/17 at 03: 59 Chlorhexidine Gluconate (Chlorhexidine 2% Cloth) 3 pack UNSCH PRN TOP HYGIENIC CARE; Start 11/21/16 at 04:30 Senna/Docusate Sodium (Venita-Colace) 1 tab BID PO Last administered on 11/24/16 09:50; Start 11/21/16 at 09:00 Magnesium Hydroxide (Milk Of Magnesia Liq) 30 ml Q12H PRN PO MILD - MODERATE CONSTIPATION; Start 11/21/16 at 04:30 Sennosides (Senokot) 17.2 mg Q12H PRN PO MODERATE - SEVERE CONSTIPATION; Start 11/21/16 at 04:30 Bisacodyl (Dulcolax Supp) 10 mg DAILY PRN RECTAL SEVERE CONSITIPATION; Start at 04:30 Lactulose (Lactulose Liq) 30 ml DAILY PRN PO SEVERE CONSITIPATION; Start at 04:30 Iodixanol (VISIPAQUE 320 INJ (Rad Spec)) 120 ml STK-MED ONCE I-ARTERIAL Last administered on 11/21/16 01:00; Start 11/21/16 at 01:00; Stop 11/21/16 at 10:04; Status DC Acetaminophen 1000 mg 1,000 mg Q6H PRN IV pain 1-10 or fever > 100.4.; Start at 17:00 Phenylephrine HCl/ Sodium Chloride (Neosynephrine Inj/NS 500 ml Inj) 504 ml @ 0 mls/hr TITRATE IV ; Start 11/21/16 at 18:00; Stop 11/22/16 at 12:54; Status DC Terbutaline Sulfate 1 mg 1 mg UNSCH PRN SQ For Extravasation; Start 11/21/16 at 17:00 Calcium Gluconate/ Sodium Chloride (Calcium Gluconate Inj/NS Inj) 120 ml @ 120 mls/hr ONCE ONCE IV Last administered on 11/22/16 06:52; Start 11/22/16 at 06: 15; Stop 11/22/16 at 07:14; Status DC Lisinopril (Prinivil) 5 mg DAILY PO Last administered on 11/23/16 09:12; Start 11/22/16 at 12:41; Stop 11/23/16 at 12:36; Status DC Labetalol HCl (Trandate Inj) 20 mg Q15M PRN IV PUSH sbp > 180 Last administered on 11/23/16 01:14; Start 11/22/16 at 12:45 Hydralazine HCl (Apresoline Inj) 10 mg Q30M PRN IV PUSH sbp > 180 Last administered on 11/23/16 13:41; Start 11/22/16 at 12:45 Nicotine (Habitrol 21 Mg Patch.24 Hr) 1 patch DAILY T-DERMAL Last administered on 11/24/16 09:38; Start 11/22/16 at 20:15 Miscellaneous Information 1 DAILY T-DERMAL ; Start 11/23/16 at 09:00; Status UNV Miscellaneous Information 1 HS T-DERMAL Last administered on 11/23/16 21:00; Start 11/22/16 at 21:00 Lisinopril (Prinivil) 10 mg DAILY PO Last administered on 11/24/16 09:39; Start 11/24/16 at 09:00; Stop 11/24/16 at 10:21; Status DC Hydrochlorothiazide 25 mg 25 mg DAILY PO Last administered on 11/24/16 09:39; Start 11/23/16 at 12:45 Calcium Gluconate/ Sodium Chloride (Calcium Gluconate Inj/NS Inj) 110 ml @ 110 mls/hr ONCE ONCE IV Last administered on 11/23/16 14:29; Start 11/23/16 at 12: 45; Stop 11/23/16 at 13:44; Status DC Lisinopril (Prinivil) 20 mg DAILY PO ; Start 11/25/16 at 09:00 A/P Assessment and Plan 71yF s/p right MCA CVA. Acute right MCA CVA - Status post TPA administration - Status post unsuccessful thrombectomy by IR - PT and OT consulted. Patient will need go to rehabilitation center. - Speech pathology evaluation: cleared for mechanical soft. - ASA. LDL is 55. Continue to monitor on telemetry. Hypertensive Urgency - Will increase lisinopril. Patient is on hydrochlorothiazide. Dyslipidemia - Atorvastatin DVT GI prophylaxis - Subcutaneous heparin - Pepcid Discharge Planning Family just came into town last night and stated that they have not looked into any rehabilitation center. Ollie is following patient. Most likely will be discharged to [facility]. Jaci Palmer MD Nov 24, 2016 11:24
[2016-11-24 12:05] VITALS: BP 131/90; PULSE 75; RESP 18; TEMP 96.3; O2SAT 100
[2016-11-24 12:42] LABS: BICARBONATE 17.6 MEQ/L (21.0-32.0); CALCIUM-PROTEIN CORRECTED 7.7 MG/DL (8.5-10.1); POTASSIUM 3.2 MEQ/L (3.5-5.1); TOTAL BILIRUBIN ADULT 0.5 MG/DL (0.2-1.0)
[2016-11-24] MEDS: SODIUM CHLOR 0.9% 1000 ML INJ 1,000 ML IV SCH (13:10)
--- NOTE | 2016-11-24 15:01 | HHI.PR ---
Review/Management Daily Summary 11/22 less restless this am on my exam no headache left hemiparesis severe and unchanged start asa suppository echo pending nutrition via ng tube? 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, scd and asa for now Subjective Subjective Comments No acute events reported No headache No chest pain No dyspnea Active Medications Current Medications Medications (Trade) Dose Ordered Sig/Chana Route Start Time Stop Time Status Last Admin (NS 1000 ml Inj) 1,000 ml @ 84 mls/hr [id number] IV 11/21/16 04:22 11/24/16 13:10 (NS Flush) 2 ml UNSCH PRN .XX 11/21/16 04:30 (NS Flush) 2 ml BID .XX 11/21/16 09:00 11/24/16 09:45 (Tylenol) 650 mg Q6H PRN PO 11/21/16 04:30 (Morphine Inj) 2 mg Q2H PRN IV 11/21/16 04:30 11/23/16 23:38 (Pepcid Inj) 20 mg Q12HR IV PUSH 11/21/16 09:00 11/24/16 09:41 (Zofran Inj) 4 mg Q6H PRN IV 11/21/16 04:30 (Reglan Inj) 10 mg Q6H PRN IV 11/21/16 04:30 (Compazine Supp) 25 mg Q12H PRN RECTAL 11/21/16 04:30 (Heparin Inj) 5,000 units Q8H SQ 11/21/16 06:00 11/24/16 06:25 Miscellaneous Information 1 Q361D XX 11/21/16 04:30 11/21/16 04:30 (Chlorhexidine 2% Cloth) 3 pack Taper DAILY@04 TOP 11/22/16 04:00 11/18/17 03:59 11/23/16 02:53 (Chlorhexidine 2% Cloth) 3 pack UNSCH PRN TOP 11/21/16 04:30 (Venita-Colace) 1 tab BID PO 11/21/16 09:00 11/24/16 09:50 (Milk Of Magnesia Liq) 30 ml Q12H PRN PO 11/21/16 04:30 (Senokot) 17.2 mg Q12H PRN PO 11/21/16 04:30 (Dulcolax Supp) 10 mg DAILY PRN RECTAL 11/21/16 04:30 (Lactulose Liq) 30 ml DAILY PRN PO 11/21/16 04:30 (Ofirmev Inj) 1,000 mg Q6H PRN IV 11/21/16 17:00 (Brethine Inj) 1 mg UNSCH PRN SQ 11/21/16 17:00 (Trandate Inj) 20 mg Q15M PRN IV PUSH 11/22/16 12:45 11/23/16 01:14 (Apresoline Inj) 10 mg Q30M PRN IV PUSH 11/22/16 12:45 11/23/16 13:41 (Habitrol 21 Mg Patch.24 Hr) 1 patch DAILY T-DERMAL 11/22/16 20:15 11/24/16 09:38 Miscellaneous Information 1 HS T-DERMAL 11/22/16 21:00 11/23/16 21:00 (Hydrodiuril) 25 mg DAILY PO 11/23/16 12:45 11/24/16 09:39 (Prinivil) 20 mg DAILY PO 11/25/16 09:00 Allergies Allergies Coded Allergies No Known Allergies (Unverified11/24/16) Exam I&O / VS 11/23/16 11/23/16 11/24/16 14:59 22:59 06:59 Intake Total 655 ml 810 ml Output Total 550 ml 300 ml Balance 655 ml -550 ml 510 ml Intake Oral 60 ml IV Total 655 ml 750 ml Output Urine Total 550 ml 300 ml # Bowel Movements 0 0 Vital Signs Date Time Temp Pulse Resp B/P Pulse Ox O2 Delivery O2 Flow Rate FiO2 11/24/16 12:05 96.3 75 18 131/90 100 11/24/16 08:17 96.0 58 20 146/97 99 11/24/16 04:04 96.7 63 18 176/86 97 11/23/16 23:59 97.3 73 18 166/79 94 11/23/16 20:40 97.6 93 18 175/85 98 11/23/16 20:00 98 Nasal Cannula 3.00 11/23/16 20:00 98 Nasal Cannula 3.00 11/23/16 16:36 96.8 85 20 173/90 100 Objective Micro and Labs Laboratory Tests Test 11/24/16 10:59 Sodium Level 138 Potassium Level 3.2 Chloride Level 106 Carbon Dioxide Level 17.6 Anion Gap 14 Blood Urea Nitrogen 9 Creatinine 0.89 Estimat Glomerular Filtration 62 Rate Random Glucose 70 Calcium Level 7.3 Protein Corrected Calcium 7.7 Total Bilirubin 0.5 Aspartate Amino Transf 17 (AST/SGOT) Alanine Aminotransferase 11 (ALT/SGPT) Alkaline Phosphatase 42 Total Protein 6.3 Albumin 2.9 Cesar Oviedo MD Nov 24, 2016 15:01
[2016-11-24] MEDS ORDERED: ACETAMINOPHEN 650 MG SUPP RECTAL PRN (15:30)
[2016-11-24 15:58] VITALS: BP 133/55; PULSE 85; RESP 18; TEMP 96.7; O2SAT 99
[2016-11-24] MEDS: ACETAMINOPHEN/HYDROcodone 325 MG/5 MG TAB PO PRN (19:11)
[2016-11-24 20:00] VITALS: BP 173/82; PULSE 68; RESP 20; TEMP 97; O2SAT 98
[2016-11-24] MEDS: REMOVE OLD PATCH T-DERMAL SCH (21:00)
[2016-11-24 22:44] VITALS: PULSE 73
[2016-11-25] VITALS (11 sets, daily range): BP systolic 146–193; BP diastolic 72–92; PULSE 54–73; RESP 17–18; TEMP 96.3–100.1; O2SAT 96–100
[2016-11-25] MEDS: SODIUM CHLOR 0.9% 1000 ML INJ 1,000 ML IV SCH ×2 (03:42→15:59)
[2016-11-25] MEDS: CHLORHEXIDINE GLUCONATE 2 % 1 PACK (2 CLOTHS) TOP SCH (03:48)
[2016-11-25] MEDS: HEPARIN SODIUM - SQ 10,000 UNITS/ML VIAL SQ SCH ×2 (05:34→14:00)
[2016-11-25] MEDS: SODIUM CHLORIDE 0.9% FLUSH 10 ML FLUSH SCH ×2 (08:55→20:45)
[2016-11-25] MEDS: FAMOTIDINE 20 MG/2 ML VIAL IV PUSH SCH ×2 (08:57→20:45)
[2016-11-25] MEDS: DOCUSATE SODIUM 50 MG/SENNA 8.6 MG TAB PO SCH ×2 (08:58→20:44)
[2016-11-25] MEDS: LISINOPRIL 10 MG TAB PO SCH (08:59)
[2016-11-25] MEDS: NICOTINE 21 MG/24 HR PATCH T-DERMAL SCH (08:59)
[2016-11-25] MEDS: HYDROCHLOROTHIAZIDE 25 MG TAB PO SCH (08:59)
--- NOTE | 2016-11-25 10:35 | RADRPT ---
EXAM DATE/TIME: 11/25/2016 09:51 [facility] COMPARISON: CT BRAIN W/O CONTRAST, November 21, 2016, 20:42. INDICATIONS : Altered mental status. MEDICAL HISTORY : Hypertension. SURGICAL HISTORY : Hysterectomy. ENCOUNTER: Subsequent ACUITY: 4-6 days PAIN SCORE: 0/10 LOCATION: cranial TECHNIQUE: Multiplanar, multisequence MRI of the brain was performed without contrast. FINDINGS: A large MCA territory infarction is seen involving the right hemisphere. Restricted diffusion noted w ithin this area. Heterogeneous areas of blooming artifact on the gradient echo sequence within the ar ea of infarction particularly within the right temporal lobe consistent with hemosiderin products. Si milar findings within the basal ganglia on the right. There is mild mass effect upon the right latera l ventricle. No hydrocephalus observed. Sulcal pattern involving the right temporal lobe and parietal lobe shows effacement. Underlying atrophy noted. No new areas of infarction appreciated. CONCLUSION: 1. Large MCA territory infarction with mild mass effect. Small areas of hemorrhage seen within the in farcted area. Antwon Thomson Jr., MD on November 25, 2016 at 10:28 Board Certified Radiologist. This report was verified electronically.
--- NOTE | 2016-11-25 11:28 | HHI.PR ---
Subjective Remarks Patient is awake and alert. Still with persistent left hemiplegia. DW with sister and daughter at bedside. She just returned from MRI. Objective Vitals Vital Signs Date Time Temp Pulse Resp B/P Pulse Ox O2 Delivery O2 Flow Rate FiO2 11/25/16 08:41 96.3 58 18 177/78 100 11/25/16 07:15 55 11/25/16 07:00 Nasal Cannula 3.00 11/25/16 03:00 97.1 54 18 173/76 97 11/25/16 00:06 99 Nasal Cannula 3.00 11/25/16 00:00 97.6 61 18 146/84 98 11/24/16 22:44 73 11/24/16 20:00 97.0 68 20 173/82 98 11/24/16 15:58 96.7 85 18 133/55 99 11/24/16 12:05 96.3 75 18 131/90 100 I/O 11/24/16 11/24/16 11/24/16 11/25/16 11/25/16 11/25/16 07:00 15:00 23:00 07:00 15:00 23:00 Intake Total 810 ml 480 ml Output Total 300 ml 400 ml 300 ml 400 ml Balance 510 ml 80 ml -300 ml -400 ml Intake Oral 60 ml 480 ml IV Total 750 ml Output Urine Total 300 ml 400 ml 300 ml 400 ml # Bowel Movements 0 Result Diagram: 11/22/16 0330 11/24/16 1059 Imaging Last Impressions Brain MRI 11/25/16 0000 Signed Impressions: Service Date/Time: Friday, November 25, 2016 09:51 - CONCLUSION: 1. Large MCA territory infarction with mild mass effect. Small areas of hemorrhage seen within the infarcted area. Antwon Thomson Jr., MD Head CT 11/21/161999 Signed Impressions: Service Date/Time: Monday, November 21, 2016 20:42 - CONCLUSION: Evidence of a subacute infarct of the right middle cerebral artery distribution. No bleed. No significant mass effect at this time. Pj Maza MD Cerebral Arteriogram 11/20/16 0000 Signed Impressions: Service Date/Time: Sunday, November 20, 2016 00:42 - CONCLUSION: 1. Occluded right common femoral artery. 2. Significant stenosis involving the left common femoral artery. 3. 50-60%% stenosis of the right ICA origin. 4. Complete occlusion of the M1 segment on the right with failed attempts at mechanical thrombectomy as detailed in the above discussion. Antwon Thomson Jr., MD Objective Remarks GENERAL: Elderly female in no acute distress. CARDIOVASCULAR: Normal rate and regular rhythm without murmurs, gallops, or rubs. RESPIRATORY: Good respiratory efforts. Breath sounds equal and clear to auscultation bilaterally. GASTROINTESTINAL: Abdomen soft, non-tender, non-distended. Normal active bowel sounds MUSCULOSKELETAL: Extremities without cyanosis, or edema. NEURO: Alert and oriented. Speech difficult to understand. Left-sided hemiplegia. Strength 5 out of 5 on the right. PSYCH: Appropriate mood and affect. A/P Assessment and Plan 71-year-old female with a large MCA infarct. Acute right MCA CVA - Status post TPA administration - Status post unsuccessful thrombectomy by IR - PT and OT consulted. Patient will need go to rehabilitation center. - Speech pathology evaluation: cleared for mechanical soft. - ASA. LDL is 55. Continue to monitor on telemetry. Neurology following. MRI confirmed a large MCA stroke with a small area of hemorrhage. Appreciate further recommendations from neurology. Hypertensive Urgency: BP still uncontrolled -Lisinopril increased yesterday. Patient is on hydrochlorothiazide. Add amlodipine. Dyslipidemia - Atorvastatin DVT GI prophylaxis -Hold subcutaneous heparin given stroke with hemorrhagic conversion. - Pepcid Discharge Planning Plan for discharge to [place]. Possible discharge tomorrow if cleared by neurology and she remains stable. Tam Llamas MD Nov 25, 2016 11:28
[2016-11-25] MEDS ORDERED: POTASSIUM CHLORIDE 10 MEQ CONTROLLED RELEASE TAB PO ONE (17:00)
--- NOTE | 2016-11-25 18:19 | RADRPT ---
EXAM DATE/TIME: 11/25/2016 17:43 [facility] COMPARISON: No previous studies available for comparison. INDICATIONS : Shortness of breath. MEDICAL HISTORY : None. SURGICAL HISTORY : None. ENCOUNTER: Initial ACUITY: 1 day PAIN SCORE: 0/10 LOCATION: chest FINDINGS: A single portable frontal view the chest shows the chin obscuring the medial left lung apex. A patchy area consolidation is suspected involving the lateral left lung base. Remaining lungs are clear. No effusions. Heart is normal in size. CONCLUSION: Left lower lobe infiltrate. Antwon Thomson Jr., MD on November 25, 2016 at 18:16 Board Certified Radiologist. This report was verified electronically.
[2016-11-25] MEDS: amLODIPine BESYLATE 5 MG TAB PO SCH (18:43)
[2016-11-25] MEDS: D5-1/2 NS + KCL 20 MEQ INJ 1,000 ML IV SCH (18:44)
[2016-11-25] MEDS ORDERED: ENALAPRILAT 1.25 MG/ML VIAL IV PUSH PRN (20:00)
[2016-11-25] MEDS ORDERED: hydrALAZINE HCL 10 MG TAB PO ONE (20:30)
[2016-11-25] MEDS: REMOVE OLD PATCH T-DERMAL SCH (21:00)
[2016-11-25] MEDS: ACETAMINOPHEN/HYDROcodone 325 MG/5 MG TAB PO PRN (22:23)
[2016-11-25] MEDS ORDERED: hydrALAZINE HCL 10 MG TAB PO PRN (23:00)
[2016-11-26] VITALS (9 sets, daily range): BP systolic 125–166; BP diastolic 63–87; PULSE 57–76; RESP 18–20; TEMP 96.7–97.8; O2SAT 96–100
[2016-11-26] MEDS: CHLORHEXIDINE GLUCONATE 2 % 1 PACK (2 CLOTHS) TOP SCH (03:27)
[2016-11-26] MEDS: SODIUM CHLORIDE 0.9% FLUSH 10 ML FLUSH SCH ×2 (09:00→22:07)
[2016-11-26] MEDS: NICOTINE 21 MG/24 HR PATCH T-DERMAL SCH (09:00)
[2016-11-26] MEDS: D5-1/2 NS + KCL 20 MEQ INJ 1,000 ML IV SCH (09:10)
[2016-11-26] MEDS: HYDROCHLOROTHIAZIDE 25 MG TAB PO SCH (09:19)
[2016-11-26] MEDS: amLODIPine BESYLATE 5 MG TAB PO SCH (09:19)
[2016-11-26] MEDS: LISINOPRIL 10 MG TAB PO SCH (09:19)
[2016-11-26] MEDS: FAMOTIDINE 20 MG/2 ML VIAL IV PUSH SCH ×2 (09:20→22:07)
[2016-11-26 10:00] LABS: BICARBONATE 22.1 MEQ/L (21.0-32.0); POTASSIUM 3.3 MEQ/L (3.5-5.1)
[2016-11-26] MEDS: DOCUSATE SODIUM 50 MG/SENNA 8.6 MG TAB PO SCH ×2 (10:26→22:07)
[2016-11-26] MEDS: ACETAMINOPHEN/HYDROcodone 325 MG/5 MG TAB PO PRN ×2 (12:52→22:08)
[2016-11-26] MEDS ORDERED: HYDR-3798 PO (12:59)
[2016-11-26] MEDS ORDERED: AMLO10TA2 PO (12:59)
[2016-11-26] MEDS ORDERED: HYDR25TA5 PO (12:59)
[2016-11-26] MEDS ORDERED: LISI-515 PO (12:59)
[2016-11-26] MEDS ORDERED: POTASSIUM CHLORIDE 10 MEQ CONTROLLED RELEASE TAB PO ONE (13:00)
[2016-11-26] MEDS ORDERED: ASPI81CH CHEW (13:06)
--- NOTE | 2016-11-26 13:08 | HHI.DS ---
Discharge Summary Admission Date Nov 21, 2016 at 00:54 Discharge Date: Nov 26, 2016 Admitting Diagnosis (1) Acute ischemic stroke ICD Code: I63.9 Procedures TPN administration. Unsuccessful attempt at thrombectomy by IR. Brief History - From Admission 71-year-old female with history of hypertension presented to [facility] today with a symptoms of acute stroke. She was treated with TPA and transferred here for high level of care. She underwent cerebral angiogram in the interventional radiology department with finding off moderate stenosis of right ICA origin and occlusion of M1 on right. Thrombectomy attempt was performed utilizing Penumbra and Solitaire devices. Unsuccessful at removing thrombus. CBC/BMP: 11/22/16 0330 11/26/16 0854 Significant Findings Laboratory Tests Test 11/24/16 11/26/16 10:59 08:54 Potassium Level 3.2 MEQ/L 3.3 MEQ/L (3.5-5.1) (3.5-5.1) Carbon Dioxide Level 17.6 MEQ/L (21.0-32.0) Estimat Glomerular Filtration 62 ML/MIN (>89) 71 ML/MIN (>89) Rate Random Glucose 70 MG/DL (74-106) Calcium Level 7.3 MG/DL 7.6 MG/DL (8.5-10.1) (8.5-10.1) Protein Corrected Calcium 7.7 MG/DL (8.5-10.1) Alkaline Phosphatase 42 U/L (45-117) Total Protein 6.3 GM/DL (6.4-8.2) Albumin 2.9 GM/DL (3.4-5.0) Imaging Last Impressions Chest X-Ray 11/25/16 0000 Signed Impressions: Service Date/Time: Friday, November 25, 2016 17:43 - CONCLUSION: Left lower lobe infiltrate. Antwon Thomson Jr., MD Brain MRI 11/25/16 0000 Signed Impressions: Service Date/Time: Friday, November 25, 2016 09:51 - CONCLUSION: 1. Large MCA territory infarction with mild mass effect. Small areas of hemorrhage seen within the infarcted area. Antwon Thomson Jr., MD Head CT 11/21/161999 Signed Impressions: Service Date/Time: Monday, November 21, 2016 20:42 - CONCLUSION: Evidence of a subacute infarct of the right middle cerebral artery distribution. No bleed. No significant mass effect at this time. Pj Maza MD Cerebral Arteriogram 11/20/16 0000 Signed Impressions: Service Date/Time: Sunday, November 20, 2016 00:42 - CONCLUSION: 1. Occluded right common femoral artery. 2. Significant stenosis involving the left common femoral artery. 3. 50-60%% stenosis of the right ICA origin. 4. Complete occlusion of the M1 segment on the right with failed attempts at mechanical thrombectomy as detailed in the above discussion. Antwon Thomson Jr., MD PE at Discharge GENERAL: Elderly female in no acute distress. CARDIOVASCULAR: Normal rate and regular rhythm without murmurs, gallops, or rubs. RESPIRATORY: Good respiratory efforts. Breath sounds equal and clear to auscultation bilaterally. GASTROINTESTINAL: Abdomen soft, non-tender, non-distended. Normal active bowel sounds MUSCULOSKELETAL: Extremities without cyanosis, or edema. NEURO: Alert and oriented. Speech difficult to understand. Left-sided hemiplegia. Strength 5 out of 5 on the right. PSYCH: Appropriate mood and affect. Pt update on day of discharge Patient reports she is feeling okay. Will like to get out of here. Still with persistent left-sided hemiparesis. Hospital Course 71-year-old female with admitted with ischemic CVA. The patient had a large MCA infarct. Evaluation and treatment course detailed below: Acute right MCA CVA - Status post TPA administration - Status post unsuccessful thrombectomy by IR - PT and OT consulted. Patient will need go to rehabilitation center. - Speech pathology evaluation: cleared for mechanical soft. - ASA. LDL is 55. Continue to monitor on telemetry. Neurology followed the patient.. MRI confirmed a large MCA stroke with a small area of hemorrhage. I spoke to Dr. Keen regarding the MRI findings and when to start Aspirin. Recomendation was to start a low dose aspirin 81 mg daily. Hypertensive Urgency: -Lisinopril increased. Patient is on hydrochlorothiazide. Amlodipine was added. Blood pressure labile. Patient will need further titration of antihypertensive in acute rehabilitation. Dyslipidemia - Atorvastatin DVT GI prophylaxis - Hold subcutaneous heparin given stroke with hemorrhagic conversion. - Pepcid Pt Condition on Discharge: Stable Discharge Disposition: Rehab Inpatient Discharge Time: > 30 minutes Discharge Instructions DIET: Follow Instructions for: Heart Healthy Diet Activities you can perform: Regular-No Restrictions, See Additionl Instruction Other Activity Instructions: Per PT New Medications: Aspirin (Aspirin) 81 Mg Chew 81 MG CHEW DAILY #30 Ref 0 TAB Amlodipine (Amlodipine) 10 Mg Tab 10 MG PO DAILY Blood Pressure Management #30 Ref 0 TAB Hydralazine HCl (Hydralazine HCl) 10 Mg Tablet 10 MG PO Q6HR PRN SBP>160, DBP>90 #30 TAB Hydrochlorothiazide (Hydrochlorothiazide) 25 Mg Tab 25 MG PO DAILY #30 TAB Changed Medications: Lisinopril (Lisinopril) 20 Mg Tab 20 MG PO DAILY #30 Ref 0 TAB (Changed from: Lisinopril 5 Mg Tab 5 Mg PO DAILY # 30 TAB Ref 0) Tam Llamas MD Nov 26, 2016 13:08
[2016-11-26] MEDS: REMOVE OLD PATCH T-DERMAL SCH (21:00)
[2016-11-27] VITALS: BP 156/72; PULSE 58; RESP 20; TEMP 98.4; O2SAT 96
[2016-11-27] MEDS: CHLORHEXIDINE GLUCONATE 2 % 1 PACK (2 CLOTHS) TOP SCH (03:20)
[2016-11-27 04:00] VITALS: BP 146/80; PULSE 66; RESP 20; TEMP 98.1; O2SAT 96
[2016-11-27 08:03] VITALS: BP 106/64; PULSE 71; RESP 18; TEMP 96.6; O2SAT 96
[2016-11-27] MEDS: HYDROCHLOROTHIAZIDE 25 MG TAB PO SCH (08:48)
[2016-11-27] MEDS: amLODIPine BESYLATE 5 MG TAB PO SCH (08:48)
[2016-11-27] MEDS: LISINOPRIL 10 MG TAB PO SCH (08:49)
[2016-11-27] MEDS: FAMOTIDINE 20 MG/2 ML VIAL IV PUSH SCH (08:50)
[2016-11-27] MEDS: SODIUM CHLORIDE 0.9% FLUSH 10 ML FLUSH SCH (08:50)
[2016-11-27] MEDS: NICOTINE 21 MG/24 HR PATCH T-DERMAL SCH (08:52)
[2016-11-27] MEDS: DOCUSATE SODIUM 50 MG/SENNA 8.6 MG TAB PO SCH (08:52)
[2016-11-27] MEDS: ACETAMINOPHEN/HYDROcodone 325 MG/5 MG TAB PO PRN (08:55)
[2016-11-27 10:13] VITALS: PULSE 60
[2016-11-27 11:51] VITALS: BP 188/86; PULSE 64; RESP 20; TEMP 95.6; O2SAT 97
[2016-11-27 13:52] VITALS: BP 137/82; PULSE 82
[2016-12-13] MEDS ORDERED: GNP100TA3 PO (08:36)
[2016-12-13] MEDS ORDERED: THERTAB15 PO (08:36)
[2016-12-13] MEDS ORDERED: HYDR-3516 PO (08:36)
[2016-12-13] MEDS ORDERED: ALPR.25 PO (08:36)
[2016-12-13] MEDS ORDERED: AMLO10TA2 PO (08:36)
[2016-12-13] MEDS ORDERED: FAMO20TA2 PO (08:36)
[2016-12-13] MEDS ORDERED: NICO21DI25 T-DERMAL (08:36)
[2016-12-13] MEDS ORDERED: GNP5TAB6 PO (08:36)
[2016-12-13] MEDS ORDERED: GABA100C4 PO (08:36)
[2016-12-13] MEDS ORDERED: DIFL100T PO (08:36)
[2016-12-13] MEDS ORDERED: FLUO20CA12 PO (08:36)
[2016-12-13] MEDS ORDERED: ASPI81CH CHEW (08:36)
== END 2016-11-27 14:19 | DRG 65 ==
LOC: NEDAMB 23:33 → N03A 11-21 00:54 → N05A 11-23 12:59 → N05B 11-23 18:52
PROVIDERS: ADMIT Family Medicine; ATTEND Family Medicine
PROC: 03JY3ZZ Inspection of Upper Artery, Percutaneous Approach (ICD-10-PCS; principal; 2016-11-20)
PROC: B313YZZ Fluoroscopy of Right Common Carotid Artery using Other Contrast (ICD-10-PCS; 2016-11-20)
PROC: B316YZZ Fluoroscopy of Right Internal Carotid Artery using Other Contrast (ICD-10-PCS; 2016-11-20)
DX: I63.311 Cerebral infarction due to thrombosis of right middle cerebral artery (principal); G81.94 Hemiplegia, unspecified affecting left nondominant side; I10 Essential (primary) hypertension; Z92.82 Status post administration of tPA (rtPA) in a different facility within the last 24 hours prior to admission to current facility; R29.716 NIHSS score 16; E78.5 Hyperlipidemia, unspecified; I16.0 Hypertensive urgency; I65.21 Occlusion and stenosis of right carotid artery
CPT/HCPCS: 61645; 70450; 70551; 71010; 76937; 80048; 80053; 80061; 82948; 83735; 84100; 84484; 85025; 85610; 85730; 93306; C1757; C1760; C1769; C1887; C1894; J0360; J0610; J0690; J1644; J2270; J2405; J3010; J3480; J7030; Q9967